=== PATIENT | female | born 1940 ===

== ENCOUNTER 2018-07-15 07:19 | Outpatient (CLI) | payer OTHER | END 2018-07-15 07:21 | disposition home or self-care (01) | LOC: SONOGRAMA 07:19 | DX: E04.1 Nontoxic single thyroid nodule (principal) ==

== ENCOUNTER 2024-04-06 09:20 | Outpatient (CLI) | payer OTHER | END 2024-04-06 09:24 | disposition home or self-care (01) | LOC: SONOGRAMA 09:20 | PROVIDERS: ATTEND Obstetrics & Gynecology Gynecology | DX: C50.012 Malignant neoplasm of nipple and areola, left female breast (principal); N60.11 Diffuse cystic mastopathy of right breast; N60.12 Diffuse cystic mastopathy of left breast; E66.9 Obesity, unspecified; N95.0 Postmenopausal bleeding; M89.9 Disorder of bone, unspecified; N83.01 Follicular cyst of right ovary; N84.0 Polyp of corpus uteri ==